=== PATIENT | female | born 1960 | race Two or more races ===

== ENCOUNTER 2020-05-18 12:45 | Inpatient (IN) | payer OTHER ==
[~2020-05-18] VITALS: Ht 162.6 cm; Wt 94.8 kg
[2020-05-18] MEDS ORDERED: FORTAMET500 MG PO (14:19)
[2020-05-18] MEDS ORDERED: COZAAR100 MG PO (14:19)
[2020-05-18] MEDS ORDERED: GLIMEPIRIDE4 M1 PO (14:20)
[2020-05-18] MEDS ORDERED: CLORAZEPATE PO (14:22)
[2020-05-25] MEDS ORDERED: ATORVASTATIN CA10 MG PO (14:18)
[2020-05-25] MEDS ORDERED: CLORAZEPATE D3.75 MG PO (14:18)
== END 2020-05-27 15:05 | disposition home or self-care (01) | DRG 737 ==
LOC: EDSTATUS 12:45 → ADM 12:45 → O/R 05-25 05:41 → SURH 05-25 12:45 → OB/GYN 05-25 19:44
PROVIDERS: ADMIT Obstetrics & Gynecology Gynecologic Oncology; ATTEND Obstetrics & Gynecology Gynecologic Oncology
PROC: 0UT20ZZ Resection of Bilateral Ovaries, Open Approach (ICD-10-PCS; 2020-05-25)
PROC: 0UT70ZZ Resection of Bilateral Fallopian Tubes, Open Approach (ICD-10-PCS; 2020-05-25)
PROC: 0DBU0ZZ Excision of Omentum, Open Approach (ICD-10-PCS; 2020-05-25)
PROC: 0UT90ZZ Resection of Uterus, Open Approach (ICD-10-PCS; principal; 2020-05-25 19:00)
DX: C56.2 Malignant neoplasm of left ovary (principal); C79.82 Secondary malignant neoplasm of genital organs; I10 Essential (primary) hypertension; E11.9 Type 2 diabetes mellitus without complications; F41.9 Anxiety disorder, unspecified